=== PATIENT | female | born 1995 | race Hispanic/Latino ===

== ENCOUNTER 2016-10-24 13:54 | Emergency (ER) | payer SELFPAY ==
[~2016-10-24] VITALS: Ht 154.9 cm; Wt 79.4 kg
[2016-10-24 14:01] VITALS: BP 125/88; PULSE 104; RESP 18; O2SAT 100
--- NOTE | 2016-10-24 14:12 | ED.REPORT ---
HPI-General Illness Date of Service Oct 24, 2016 ED Provider: Fozia Pretty History of Present Illness: no menses for 3 months, no primary care. had been having regular perids menses would last 6 days, menses have been irregular sometimes on the first sometimes on the 5th. comes today because sister said it is not normal. is under a lot of stress, sleeping issues. no work at present, looking for work in the [place]. denies pain Nursing Notes Stated Complaint: MENSTRUAL CYCLE Chief Complaint: General Complaint Nursing Notes Reviewed: Yes Allergies: Coded Allergies: No Known Allergies (Unverified , 10/24/16) General Time Seen by MD: 14:09 Chief Complaint Other (no menses for 3 months) Hx Obtained From: Patient Sudden in Onset?: No Past Medical History Past Medical History Notes: lives with with sisters 2, sisters are going to school, saved money. States she feels safe in the home Past Medical History Denies: Asthma Past Surgical History denies Smoking History Never Smoker Social History Alcohol Use: Denies alcohol use Drug Use: Denies drug use Occupation lives with sisters, feels safe at home Ambulatory Status Independent Review of Systems Full Review of Systems Constitutional: Denies: Chills, Fatigue Respiratory: Denies: Dyspnea on exertion, Hemoptysis Cardiovascular: Denies: Chest pain GI: Denies: Abdominal pain Female: Denies: Dysuria, Flank pain Musculoskeletal: Denies: Back pain Endocrine: Denies: Cold intolerance Allergy / Immune: Denies: Allergic reaction Physical Exam Vital Signs Vital Signs Date Time Temp Pulse Resp B/P Pulse Ox O2 Delivery O2 Flow Rate FiO2 10/24/16 15:07 83 20 111/79 100 10/24/16 14:01 36.3 104 18 125/88 100 Room Air Initial VS: Reviewed, Vital signs normal General/Constitutional: Well-developed, Well-nourished Head / Eyes: Atraumatic, Normocephalic, PERRL ENT: Mucous membranes moist, Conjunctiva normal, No scleral icterus Neck: Supple, Non-tender, Full range of motion Respiratory: Breath sounds normal, Clear to auscultation, No respiratory distress Cardiovascular: Regular rate & rhythm, Heart sounds normal, Intact distal pulses Abdomen / GI: Soft, Non-tender, No guarding, No rebound, No distention Back: No CVA tenderness Lymphatic: No lymphadenopathy Extremities: Vascular intact, Neuro intact, No swelling, No tenderness Skin: Warm, Dry, No cyanosis Neurologic: Alert, Oriented, Nonfocal Psychiatric: Mood/affect normal, Behavior normal, Normal thought content General/Constitutional: Awake, Alert, No acute distress, Well appearing, Well developed, Well hydrated Head / Eyes: Atraumatic, Normocephalic, PERRL ENT: Atraumatic, Airway patent, Mucous membranes moist Neck: Atraumatic, Supple, No meningismus, Full range of motion Respiratory / Chest: Atraumatic, Breath sounds NL, Breath sounds = bilat, No respiratory distress Cardiovascular: Heart rate NL, Regular rhythm, Heart sounds NL Abdomen: Atraumatic, Soft, Non-tender, McBurney's non-tender Interpretation & Diagnostics Lab Results Interpretation Test 10/24/16 14:30 Hold Urine Received (Received) Lab Results Interpretation: u preg is negative, urine is normal Discharge & Departure Primary Impression: Amenorrhea Additional Impression: Stress Disposition: Home Patient Instructions: Menstruation (ED) Additional Instructions: The urine shows you are not . It does not show any sign of infection. This is an issue that needs primary care. [facility] determine if you should be placed on medication. Referrals: [facility] EDSupervising Provider for APC: Renetta Sanchez MD copies to: [facility] Fozia Pretty Oct 24, 2016 14:11
[2016-10-24 15:07] VITALS: BP 111/79; PULSE 83; RESP 20; O2SAT 100
== END 2016-10-24 15:07 | disposition home or self-care (01) ==
LOC: SED 13:54
DX: N91.2 Amenorrhea, unspecified (principal); F43.9 Reaction to severe stress, unspecified